=== PATIENT | female | born 1970 | race Hispanic/Latino ===

== ENCOUNTER → 2018-02-14 | Outpatient (CLI) | payer OTHER | END | disposition home or self-care (01) | LOC: OIH 14:09 | PROVIDERS: ATTEND Internal Medicine Cardiovascular Disease | DX: Z13.6 Encounter for screening for cardiovascular disorders (principal) | CPT/HCPCS: 75571 ==

== ENCOUNTER → 2023-05-12 | Outpatient (CLI) | payer OTHER | END | disposition home or self-care (01) | LOC: OIH 07:53 | PROVIDERS: ATTEND Internal Medicine Cardiovascular Disease | DX: Z13.6 Encounter for screening for cardiovascular disorders (principal) | CPT/HCPCS: 75571 ==